=== PATIENT | female | born 1990 | race Caucasian/White ===

== ENCOUNTER 2017-11-21 16:52 | Outpatient (CLI) | END 2017-11-21 19:00 | disposition home or self-care (01) ==

== ENCOUNTER 2017-12-13 11:25 | Inpatient (IN) | END 2017-12-20 15:10 | disposition home or self-care (01) | DRG 766 ==

== ENCOUNTER 2017-12-26 12:50 | Emergency (ER) | END 2017-12-26 14:40 | disposition home or self-care (01) ==

== ENCOUNTER 2018-01-10 06:13 | Inpatient (IN) | END 2018-01-12 15:50 | disposition home or self-care (01) | DRG 776 ==